=== PATIENT | female | born 1970 | race Caucasian/White ===

== ENCOUNTER 2016-11-22 17:25 | Emergency (ER) | payer OTHER ==
[~2016-11-22] VITALS: Ht 149.9 cm; Wt 72.6 kg
[~2016-11-22 17:25] MED LIST: BIRTH CONTROL
== END 2016-11-22 18:31 | disposition home or self-care (01) ==
LOC: ER 17:25
DX: J40 Bronchitis, not specified as acute or chronic (principal); F10.20 Alcohol dependence, uncomplicated
CPT/HCPCS: A4663

== ENCOUNTER 2016-11-29 18:28 | Emergency (ER) | payer OTHER ==
[~2016-11-29] VITALS: Ht 152.4 cm; Wt 70.3 kg
--- NOTE | 2016-11-29 19:20 | NUR ---
MSE DONE BY DR MANCUSO AT BEDSIDE.
[2016-11-29 19:44] LABS: *URINE HCG, QUAL NEGATIVE (NEGATIVE)
[2016-11-29 19:46] LABS: *BILIRUBIN,URIN NEGATIVE (NEGATIVE); *BLOOD, URINE NEGATIVE (NEGATIVE); *CLARITY,URINE CLEAR (CLEAR); *COLOR,URINE YELLOW (YELLOW); *KETONES,URINE NEGATIVE (NEGATIVE); *PROTEIN,URINE NEGATIVE (NEGATIVE); *UROBILINOGEN,URINE 0.2 E.U./dl (NORMAL); LEUKOCYTE ESTERASE ,URINE NEGATIVE (NEGATIVE); NITRITE, URINE NEGATIVE (NEGATIVE); PH,URINE 5.5 (5.0-8.0); UGLUCOSE NEGATIVE (NEGATIVE)
[2016-11-29 19:59] LABS: MUCUS,URINE MODERATE /LPF (0-FEW); SQUAMOUS EPITHELIAL CELL,UR FEW /HPF (NONE SEEN); WBC,URINE 0-3 /HPF (0-3)
--- NOTE | 2016-11-29 20:05 | NUR ---
DR MANCUSO MADE PATIENT AWARE WILL BE DC HOME.
--- NOTE | 2016-11-29 20:19 | NUR ---
Patient discharged to home in stable conditon. Written and verbal after care instructions given. Patient verbalizes understanding of instructions.
== END 2016-11-29 20:19 | disposition home or self-care (01) ==
LOC: ER 18:34
DX: N39.0 Urinary tract infection, site not specified (principal); F10.20 Alcohol dependence, uncomplicated
CPT/HCPCS: 81001; 84703; 99283; A4663

== ENCOUNTER 2024-11-04 14:28 | Emergency (ER) | payer OTHER ==
[~2024-11-04] VITALS: Ht 152.4 cm; Wt 78.9 kg
[2024-11-04] MEDS ORDERED: IBUP-1955 PO (15:16)
[2024-11-04 16:00] VITALS: BP 127/71; O2SAT 95
== END 2024-11-04 16:01 | disposition home or self-care (01) ==
LOC: ER 14:48
DX: M25.572 Pain in left ankle and joints of left foot (principal); G89.29 Other chronic pain; Z79.3 Long term (current) use of hormonal contraceptives
CPT/HCPCS: 73610; A4606; A4663